=== PATIENT | female | born 1965 | race Caucasian/White ===

== ENCOUNTER 2018-01-05 07:15 | Emergency (ER) | payer BC ==
[2018-01-05 07:25] VITALS: BP 127/79
--- NOTE | 2018-01-05 09:56 | UC ---
Zaida Rucker Rebecca, scribed for Lelo Botello DO on 01/05/18 at 0752 . Dental HPI - HPI Summary HPI Summary: Pt is a 52 F who presents to [facility] c/o right-sided dental pain. 1 week ago she had a porcelain bridge placed which was reevaluated by a different dentist and determined to need replacing. The original bridge was removed and a temporary one was placed which has since come off twice. Two days ago () she began experiencing dental pain on the tooth located at the front of the bridge. Pain began as mild, then worsened last night preventing her from being able to sleep. Without Advil, the pain was 8/10 last night though currently it is 3/10 after having taken 1 Advil. Additionally notes a red spot behind her last molar on the right side, as well as right ear pain and right-sided throat pain. Denies any drainage around the tooth and confirms she can swallow her own saliva without issue. Notes mild nasal congestion secondary to seasonal allergies. Denies any other symptoms including fever, chills, diaphoresis, N/V, abdominal pain, CP, SOB, cough, MCKEON, and rash. - History of Current Complaint Chief Complaint: UCDentalProblem Stated Complaint: DENTAL COMPLAINT Time Seen by Provider: 01/05/18 07:41 Hx Obtained From: Patient Hx Last Menstrual Period: 1 week ago Onset/Duration: Lasting Days - 2 days, Still Present Severity: Mild Pain Intensity: 3 Pain Scale Used: 0-10 Numeric Aggravating Factor(s): Nothing Alleviating Factor(s): OTC Meds - Advil Related History: Previous Dental Care on Same Tooth - Bridge - Allergies/Home Medications Allergies/Adverse Reactions: Allergies Allergy/AdvReac Type Severity Reaction Status Date / Time cefaclor [From [facility]] Allergy Rash Verified 01/05/18 07:26 Sulfa (Sulfonamide Allergy Rash Verified 01/05/18 07:26 Antibiotics) Spring allergies Allergy Intermediate Runny Nose Uncoded 01/05/18 07:26 PMH/Surg Hx/FS Hx/Imm Hx - Additional Past Medical History Additional PMH: NEGATIVE PMHx: DM, HTN, COPD, Ulcer Respiratory History: Other Other Respiratory History: Seasonal allergies - Surgical History Surgical History: None - Family History Known Family History: Negative: Cardiac Disease, Hypertension, Diabetes - Social History Alcohol Use: Occasionally Substance Use Type: None Smoking Status (MU): Never Smoked Tobacco Review of Systems Constitutional: Negative Skin: Negative Eyes: Negative ENT: Dental Pain - Right side, Sore Throat - Right-sided, Ear Ache - Right, Sinus Congestion - Secondary to seasonal allergies, Other - Red spot behind right molar, canker sores Respiratory: Negative Cardiovascular: Negative Gastrointestinal: Negative Genitourinary: Negative Motor: Negative Neurovascular: Negative Musculoskeletal: Negative Neurological: Negative Psychological: Negative All Other Systems Reviewed And Are Negative: Yes - Comments Additional Review of Systems Comments: NEGATIVE: Drainage around the tooth, fever, chills, diaphoresis, N/V, abdominal pain, CP, SOB, cough, MCKEON, and rash Physical Exam - Summary Physical Exam Summary: Appearance: Well-Appearing, No Pain Distress, Well-Nourished Eyes: Conjunctiva clear, no discharge ENT: Pharyngeal erythema, there is a bridge in the lower jaw between teeth 13 and 15, tooth 13 is exquisitely tender to percussion, there is no drainage, no swelling, and no trismus. TMs normal, negative tonsillar swelling, negative tonsillar exudate. Neck: Normal, Supple Respiratory/Lung Sounds: Lungs clear, Normal breath sounds, No respiratory distress, No accessory muscle use Cardiovascular: RRR, No murmur Musculoskeletal: Normal Neurological: Alert, muscle tone normal Psychiatric:Normal, age appropriate behavior Skin: Normal, Warm, Dry, Normal color Triage Information Reviewed: Yes Vital Signs: Initial Vital Signs Temp 98.1 F 01/05/18 07:19 Pulse 56 01/05/18 07:19 Resp 16 01/05/18 07:19 BP 127/79 01/05/18 07:19 Pulse Ox 100 01/05/18 07:19 Vital Signs Reviewed: Yes Dental Complaint Course/Dx - Course Course Of Treatment: Pt is a 52 F who presents to [facility] c/o right-sided dental pain s/p bridge placement 1 week ago. The original bridge was removed and a temporary one was placed which has since come off twice. Two days ago ( ) she began experiencing dental pain on the tooth located at the front of the bridge, beginning as mild, worsening last night preventing her from being able to sleep. Without Advil, the pain was 8/10 last night though currently it is 3/ 10 after having taken 1 Advil. Additionally notes a red spot behind her last molar on the right side, right ear pain and right-sided throat pain. Denies any drainage around the tooth and confirms she can swallow her own saliva without issue. Notes mild nasal congestion secondary to seasonal allergies. Denies any other symptoms including fever, chills, diaphoresis, N/V, abdominal pain, CP, SOB, cough, MCKEON, and rash. She will be D/C with a Dx of toothache and Rx for Tylenol/Codeine, Amoxicillin and Diflucan. Medications noted. Allergies noted. - Differential Dx/Diagnosis Provider Diagnoses: Toothache Discharge - Sign-Out/Discharge Documenting (check all that apply): Discharge/Admit/Transfer - Discharge - Discharge Plan Condition: Stable Disposition: HOME Prescriptions: Acetaminop/Codeine 30 MG TAB* [Tylenol/Codeine 30 MG TAB*] 1 tab PO Q8H PRN #10 tab MDD mdd PRN Reason: Pain (Dental) Amoxicillin/Clavulanate TAB* [Augmentin TAB 875*] 875 mg PO BID #20 tab Fluconazole [Diflucan] 150 mg PO ONCE #2 tab Patient Education Materials: Pharyngitis (ED), Toothache (ED) Referrals: No Primary Care Phys,NOPCP [Primary Care Provider] - If Needed Additional Instructions: AUGMENTIN: Augmentin is a mixture of amoxicillin and clavulanate. Amoxicillin is a member of the penicillin family. It covers the germs likely to cause ear, bronchial, and urinary infections better than plain penicillin. The addition of clavulanate allows it to cover staph infections of the skin, as well as resistant cases of ear and sinus infections. Your physician has chosen Augmentin for you because of the special nature of your situation. Augmentin is best taken with meals. Nausea after taking the medication is rare, but can occur. Diarrhea can occur, particularly in small children. Vaginal yeast infections, and oral thrush in infants are also common. Contact your physician if these problems occur. Allergy to penicillins is common. If you have had an allergic reaction to any drug of the penicillin family, you should never take any other penicillin. Notify your doctor at once if you develop hives, shortness of breath, swelling, or faintness. ACETAMINOPHEN WITH CODEINE: You have been given a prescription for acetaminophen with codeine for pain control. Codeine is a narcotic. It is best taken with food, as nausea can result if taken on an empty stomach. Don't operate machinery or drive within six hours of taking this medication. Do not combine this medication with alcohol, or with any sedative type medicine such as cold tablets or sleeping pills unless your doctor gives permission. Narcotics tend to cause constipation. It's best to get plenty of fluids, fiber, and fruits. YOU WILL NEED TO FOLLOW UP WITH A DENTIST. PLEASE CALL YOUR DENTIST TO MAKE AN APPOINTMENT TO BE SEEN SOON POSSIBLE. - Replace beneficial bacteria via fermented foods (sauerkraut, yogurt, etc.) and probiotic supplement daily - Can gargle with salt water - try cocconut oil pulling for discomfort in your mouth The documentation as recorded by the Zaida everett Rebecca accurately reflects the service I personally performed and the decisions made by me, Lelo Botello DO.
== END 2018-01-05 08:09 | disposition home or self-care (01) ==
LOC: UCEAST 07:15
DX: K08.89 Other specified disorders of teeth and supporting structures (principal); Z88.2 Allergy status to sulfonamides; Z88.8 Allergy status to other drugs, medicaments and biological substances
CPT/HCPCS: 99212; G0463